=== PATIENT | male | born 1990 | race Asian ===

== ENCOUNTER 2018-02-20 13:18 | Emergency (ER) | payer OTHER ==
[~2018-02-20] VITALS: Ht 188 cm; Wt 82.5 kg
[2018-02-20 13:23] VITALS: TEMP 36.4; Ht 188 cm; Wt 82.5 kg
[2018-02-20] MEDS ORDERED: ONDANSETRON INJ 2 MG/ML 2 ML VIAL IV STA (13:34)
[2018-02-20] MEDS ORDERED: OPTIRAY 320 IV PRN (14:00)
[2018-02-20 14:01] LABS: BASO % 0.1 %; BASO ABS # 0.01 K/uL (0-0.2); EOS % 2.4 %; EOS ABS # 0.22 K/uL (0-0.5); HEMATOCRIT 46.4 % (42-52); HEMOGLOBIN 15.9 g/dL (14.0-18.0); IG# 0.01 K/uL (0.00-0.02); LYMPH % 24.8 %; LYMPH ABS # 2.29 K/uL (1.2-3.4); MEAN CELL VOLUME 85.1 fL (80-100); MEAN CORPUSCULAR HEMOGLOBIN 29.2 pg (25-34); MEAN CORPUSCULAR HGB CONC 34.3 g/dl (32-36); MEAN PLATELET VOLUME 9.5 fL (7.4-10.4); MONO ABS # 0.74 K/uL (0.11-0.59); NEUT % 64.6 %; NEUT ABS # 5.97 K/uL (1.4-6.5); PLATELET COUNT 233 K/uL (130-400); RED CELL DISTRIBUTION WIDTH CV 12.8 % (11.5-14.5); RED CELL DISTRIBUTION WIDTH SD 39.7 fL (36.4-46.3); WHITE BLOOD COUNT 9.24 K/uL (4.8-10.8)
[2018-02-20 14:10] LABS: ALBUMIN 4.4 gm/dl (3.4-5.0); CALCIUM 9.3 mg/dl (8.5-10.1); CREATININE 1.16 mg/dl (0.60-1.40); POTASSIUM 3.7 mmol/L (3.5-5.1)
[2018-02-20 14:13] LABS: TOTAL PROTEIN 8.4 gm/dl (6.4-8.2)
--- NOTE | 2018-02-20 16:26 | DIAGNOSTIC IMAGING REPORT ---
ABD/PELVIS IV AND ORAL CONT CT DOSE: 331.36 mGy.cm HISTORY: Pain. Flank pain. eval for appe TECHNIQUE: Multiaxial CT images of the abdomen and pelvis were performed following the use of intravenous and oral contrast. A dose lowering technique was utilized adhering to the principles of ALARA. COMPARISON STUDY: None. FINDINGS: Lung bases are clear. Liver spleen and pancreas are uniform. Kidneys enhance uniformly. No evidence for differences. Multiple mesenteric nodes measuring up to 1.2 cm. Normal appendix. Mild reactive ileus. No evidence for true bowel obstructive change. Bladder is midline. No free fluid within the pelvic cul-de-sac. Inguinal regions are unremarkable. IMPRESSION: 1. Mesenteric adenitis. 2. Mild reactive ileus. 3. Normal appendix. The above report was generated using voice recognition software. It may contain grammatical, syntax or spelling errors. Electronically signed by: Manohar Vivar M.D. 02/20/2018 4:25 PM Dictated Date/Time: 02/20/2018 4:23 PM
[2018-02-20 16:54] VITALS: BP 149/79; PULSE 69; O2SAT 98
--- NOTE | 2018-02-20 19:37 | EMERGENCY ROOM VISIT NOTE ---
History Report prepared by Yoli: Ho Nieto Under the Supervision of: Dr. Fernando King M.D. First contact with patient: 13:26 Chief Complaint: ABDOMINAL PAIN Stated Complaint: ABDOMINAL PAIN History of Present Illness The patient is a 27 year old male who presents to the Emergency Room with complaints of coming and going right upper quadrant abdominal pain for the past 4 days. He states that the pain is mild and feels like a poke, and he states that the pain goes into his back around once per day. The patient notes that he has felt feverish though has not taken his temperature. He denies any vomiting, diarrhea, problems with urination, and hematuria. The patient has no chronic medical problems. The patient states that he recently had his wisdom teeth removed, and he states that yesterday he had some pain to his jaw. Source of History: patient Onset: 4 days Position: abdomen (RUQ) Symptom Intensity: mild Quality: other (feels like a poke) Timing: other (coming and going) Associated Symptoms: + back pain, No vomiting, No diarrhea, No urinary symptoms Review of Systems See HPI for pertinent positives & negatives. A total of 10 systems reviewed and were otherwise negative. Past Medical & Surgical Surgical Problems: (1) H/O wisdom tooth extraction Social History Smoking Status: Current Every Day Smoker Marital Status: single Occupation Status: [employer] student Current/Historical Medications No Active Prescriptions or Reported Meds Allergies Coded Allergies: No Known Allergies (Unverified , 02/20/18) Physical Exam Vital Signs Date Time Temp Pulse Resp B/P (MAP) Pulse Ox O2 Delivery O2 Flow Rate FiO2 02/20/18 16:54 69 18 149/79 98 02/20/18 14:47 52 16 137/76 98 Room Air 02/20/18 13:23 36.4 101 20 139/83 96 Room Air Physical Exam Constitutional: Vital signs reviewed. Eyes: Pupils are equal round reactive to light. Conjunctiva are noninjected. ENT: Pharynx is clear without erythema or exudate. Mucous membranes are moist. No evidence of dry socket or infection to the left jaw. Neck supple without meningeal signs. Respiratory: Clear to auscultation bilaterally. Breath sounds are equal bilaterally. Cardiovascular: Regular rate and rhythm. No rubs or gallops. GI: Right lower quadrant tenderness. No guarding. Soft and nondistended. Bowel sounds are present. Musculoskeletal: No peripheral edema. No lower extremity tenderness. Integumentary: No cyanosis. Neurological: The patient is awake and alert. No focal deficits. Psychiatric: Normal affect. Medical Decision & Procedures ER Provider Diagnostic Interpretation: Radiology results as stated below per my review and the radiologist's interpretation: ABD/PELVIS IV AND ORAL CONT CT DOSE: 331.36 mGy.cm HISTORY: Pain. Flank pain. eval for appe TECHNIQUE: Multiaxial CT images of the abdomen and pelvis were performed following the use of intravenous and oral contrast. A dose lowering technique was utilized adhering to the principles of ALARA. COMPARISON STUDY: None. FINDINGS: Lung bases are clear. Liver spleen and pancreas are uniform. Kidneys enhance uniformly. No evidence for differences. Multiple mesenteric nodes measuring up to 1.2 cm. Normal appendix. Mild reactive ileus. No evidence for true bowel obstructive change. Bladder is midline. No free fluid within the pelvic cul-de-sac. Inguinal regions are unremarkable. IMPRESSION: 1. Mesenteric adenitis. 2. Mild reactive ileus. 3. Normal appendix. The above report was generated using voice recognition software. It may contain grammatical, syntax or spelling errors. Electronically signed by: Manohar Vivar M.D. 02/20/2018 4:25 PM Dictated Date/Time: 02/20/2018 4:23 PM Laboratory Results 02/20/18 13:45 Red Blood Count 5.45, Mean Corpuscular Volume 85.1, Mean Corpuscular Hemoglobin 29.2, Mean Corpuscular Hemoglobin Concent 34.3, Mean Platelet Volume 9.5, Neutrophils (%) (Auto) 64.6, Lymphocytes (%) (Auto) 24.8, Monocytes (%) (Auto) 8.0, Eosinophils (%) (Auto) 2.4, Basophils (%) (Auto) 0.1, Neutrophils # (Auto) 5.97, Lymphocytes # (Auto) 2.29, Monocytes # (Auto) 0.74, Eosinophils # (Auto) 0.22, Basophils # (Auto) 0.01 02/20/18 13:45 Test 02/20/18 13:45 02/20/18 15:00 White Blood Count 9.24 K/uL (4.8-10.8) Red Blood Count 5.45 M/uL (4.7-6.1) Hemoglobin 15.9 g/dL (14.0-18.0) Hematocrit 46.4 % (42-52) Mean Corpuscular Volume 85.1 fL (80-100) Mean Corpuscular Hemoglobin 29.2 pg (25-34) Mean Corpuscular Hemoglobin Concent 34.3 g/dl (32-36) Platelet Count 233 K/uL (130-400) Mean Platelet Volume 9.5 fL (7.4-10.4) Neutrophils (%) (Auto) 64.6 % Lymphocytes (%) (Auto) 24.8 % Monocytes (%) (Auto) 8.0 % Eosinophils (%) (Auto) 2.4 % Basophils (%) (Auto) 0.1 % Neutrophils # (Auto) 5.97 K/uL (1.4-6.5) Lymphocytes # (Auto) 2.29 K/uL (1.2-3.4) Monocytes # (Auto) 0.74 K/uL (0.11-0.59) Eosinophils # (Auto) 0.22 K/uL (0-0.5) Basophils # (Auto) 0.01 K/uL (0-0.2) RDW Standard Deviation 39.7 fL (36.4-46.3) RDW Coefficient of Variation 12.8 % (11.5-14.5) Immature Granulocyte % (Auto) 0.1 % Immature Granulocyte # (Auto) 0.01 K/uL (0.00-0.02) Anion Gap 7.0 mmol/L (3-11) Est Creatinine Clear Calc Drug Dose 112.2 ml/min Estimated GFR () 100.2 Estimated GFR (Non- 86.4 BUN/Creatinine Ratio 7.9 (10-20) Calcium Level 9.3 mg/dl (8.5-10.1) Total Bilirubin 1.0 mg/dl (0.2-1) Direct Bilirubin 0.2 mg/dl (0-0.2) Aspartate Amino Transf (AST/SGOT) 15 U/L (15-37) Alanine Aminotransferase (ALT/SGPT) 41 U/L (12-78) Alkaline Phosphatase 126 U/L (45-117) Total Protein 8.4 gm/dl (6.4-8.2) Albumin 4.4 gm/dl (3.4-5.0) Lipase 100 U/L (73-393) Urine Color DK YELLOW Urine Appearance CLEAR (CLEAR) Urine pH 8.5 (4.5-7.5) Urine Specific [place] 1.026 (1.000-1.030) Urine Protein NEG (NEG) Urine Glucose (UA) NEG (NEG) Urine Ketones TRACE (NEG) Urine Occult Blood NEG (NEG) Urine Nitrite NEG (NEG) Urine Bilirubin NEG (NEG) Urine Urobilinogen NEG (NEG) Urine Leukocyte Esterase NEG (NEG) Laboratory results as reviewed by me. Medications Administered Medications (Trade) Dose Ordered Sig/Karen Route Start Time Stop Time Status Last Admin Dose Admin Ondansetron HCl (Zofran Inj) 4 mg NOW STAT IV 02/20/18 13:34 02/20/18 13:36 DC 02/20/18 13:54 4 MG ED Course 1326: The patient was evaluated in room A11. A complete history and physical exam was performed. 1334: Zofran 4mg IV 1645: I reevaluated the patient, and using a Turkmen superintendent factory I discussed the test results, follow up, and dietary restrictions. Medical Decision This is a 27-year-old male presents with right-sided abdominal pain. Differential diagnosis includes acute appendicitis, perforation, abscess, irritable bowel syndrome, mesenteric adenitis, inflammatory bowel disease. I did perform a limited focused review of portions of the patient's old chart on the electronic medical record. The patient has no prior visits. I did evaluate the patient as noted above. Patient is presenting with abdominal pain for the past several days. He is tender in the right lower quadrant. I was worried about possible appendicitis. IV access was established. I did treat him with Zofran IV. I did order and personally review the patient's urine analysis as described above. I did order and review the patient's blood work as noted in the electronic medical record. His white blood cell count is not elevated. I did order a CT of the abdomen and pelvis. I did review the images myself as well as the radiology report as described above. The patient has no evidence of acute appendicitis. He does have what appears to be mesenteric adenitis with a reactive ileus. I did discuss the test results with the patient. I did use a sociology adjunct instructor and Turkmen to answer all his questions and to review his blood tests and CAT scan with him. He was advised to stay on a mild diet and to follow-up with [facility]. He was discharged in good condition. Medication Reconcilliation Current Medication List: was personally reviewed by me Blood Pressure Screening Patient's blood pressure: Elevated blood pressure Blood pressure disposition: Referred to PCP Impression Primary Impression: Mesenteric adenitis Scribe Attestation The scribe's documentation has been prepared under my direct and personally reviewed by me in its entirety. I confirm that the note above accurately reflects all work, treatment, procedures, and medical decision making performed by me. Departure Information Dispostion Home / Self-Care Prescriptions No Active Prescriptions or Reported Meds Referrals No Doctor, Assigned (PCP) Forms HOME CARE DOCUMENTATION FORM, IMPORTANT VISIT INFORMATION, School Instructions Patient Instructions ED Adenitis Mesenteric, [facility] Additional Instructions You have been examined and treated today on an emergency basis only. This is not a substitute for, or an effort to provide, complete comprehensive medical care. It is impossible to recognize and treat all injuries or illnesses in a single emergency department visit. It is therefore important that you follow up closely with your physician. Call as soon as possible for an appointment. Return for worsening symptoms or if you develop fever, vomiting, or any other concerning symptoms.
== END 2018-02-20 16:54 | disposition home or self-care (01) ==
LOC: C.EDB 13:22 → C.EDA 16:54
DX: I88.0 Nonspecific mesenteric lymphadenitis (principal); F17.210 Nicotine dependence, cigarettes, uncomplicated